=== PATIENT | male | born 1985 | race Caucasian/White ===

== ENCOUNTER 2018-02-27 01:14 | Emergency (ER) | payer OTHER ==
[2018-02-27] MEDS: Bacitracin/Neomycin/Polymyxin B Oint 0.9 GM U/D Packet ONE (02:03)
--- NOTE | 2018-02-27 02:21 | EDM.PDOC ---
ED HPI GENERAL MEDICAL PROBLEM - General Chief Complaint: Upper Extremity Injury/Pain Stated Complaint: LEFT HAND LACERATIONS Time Seen by Provider: 02/27/18 01:48 Source of Information: Reports: Patient History Limitations: Reports: No Limitations - History of Present Illness INITIAL COMMENTS - FREE TEXT/NARRATIVE: [facility] utility knife. No loss of tendon function. Bleeding controlled. No other complaints. No numbness. - Related Data Allergies Allergy/AdvReac Type Severity Reaction Status Date / Time No Known Allergies Allergy Verified 02/27/18 01:22 Home Meds: Home Meds . [No Known Home Meds] 02/27/18 [History] Past Medical History Musculoskeletal History: Reports: Other (See Below) Other Musculoskeletal History: NOSE FX - Infectious Disease History Infectious Disease History: Reports: Chicken Pox - Past Surgical History Musculoskeletal Surgical History: Reports: Shoulder Surgery Social & Family History - Tobacco Use Smoking Status *Q: Former Smoker Years of Tobacco use: 10 Packs/Tins Daily: 1 Used Tobacco, but Quit: Yes Month/Year Tobacco Last Used: 2016 Tobacco Use Comment: CURRENTLY USES DIP. - Caffeine Use Caffeine Use: Reports: Energy Drinks Caffeine Use Comment: 1 CAN DAILY - Recreational Drug Use Recreational Drug Use: Yes Drug Use in Last 12 Months: No Recreational Drug Type: Reports: Marijuana/Hashish Review of Systems - Review of Systems Review Of Systems: ROS reveals no pertinent complaints other than HPI. ED EXAM, GENERAL - Physical Exam Exam: See Below Exam Limited By: No Limitations General Appearance: Alert, WD/WN, No Apparent Distress Eye Exam: Bilateral Eye: EOMI, PERRL Head: Atraumatic, Normocephalic Neck: Supple Respiratory/Chest: No Respiratory Distress Extremities: Normal Range of Motion, Normal Capillary Refill Neurological: Alert, Oriented, Normal Cognition, Normal Gait, No Motor/Sensory Deficits Psychiatric: Normal Affect, Normal Mood Skin Exam: Warm, Dry, Other (Deeper lacerations noted ventral aspect of 2nd and 3rd digits, left hand. Superficial small laceration 4th finger. Smaller slightly deeper laceration 5th finger. Tendon function intact. NVI. ) ED TRAUMA EXTREMITY PROCEDURES - Laceration/Wound Repair index finger left Appearance: Subcutaneous, Stellate, Mildly Contaminated Distal NVT: Neuro & Vascular Intact, No Tendon Injury Local Anesthesia - Lidocaine (Xylocaine): 1% Plain Local Anesthetic Volume: 1cc Skin Prep: Providone-Iodine (Betadine) Exploration/Debridement/Repair: Wound Explored, In a Bloodless Field, Explored to Base Closed With: Sutures Suture Size: 4-0 # of Sutures: 2 Suture Type: Nylon, Interrupted Sterile Dressing Applied: Nurse Tetanus Status Addressed: Yes Complications: No middle finger left Lac/Wound Length In cm: 2 Appearance: Subcutaneous, Linear, Mildly Contaminated Distal NVT: Neuro & Vascular Intact, No Tendon Injury Anesthetic Type: Local Local Anesthesia - Lidocaine (Xylocaine): 1% Plain Local Anesthetic Volume: 2cc Skin Prep: Providone-Iodine (Betadine) Exploration/Debridement/Repair: Wound Explored, In a Bloodless Field, Explored to Base Suture Size: 4-0 # of Sutures: 3 Suture Type: Nylon Sterile Dressing Applied: Nurse Tetanus Status Addressed: Yes Complications: No 5th finger left Lac/Wound Length In cm: 0.5 Appearance: Subcutaneous Distal NVT: Neuro & Vascular Intact, No Tendon Injury Skin Prep: Providone-Iodine (Betadine) Exploration/Debridement/Repair: Wound Explored, In a Bloodless Field, Explored to Base Closed With: Steri-Strips Sterile Dressing Applied: Nurse Tetanus Status Addressed: Yes Course - Vital Signs Last Recorded V/S: Last Vital Signs Temp 36.1 C 02/27/18 01:15 Pulse 68 02/27/18 01:15 Resp 20 02/27/18 01:15 BP 128/81 02/27/18 01:15 Pulse Ox 100 02/27/18 01:15 - Orders/Labs/Meds Meds: Medications Discontinued Medications Generic Name Dose Route Start Last Admin Trade Name Jasmin PRN Reason Stop Dose Admin Lidocaine HCl 5 ml 02/27/18 01:48 02/27/18 02:03 Xylocaine-Mpf 1% INJECT 02/27/18 01:49 5 ml ONETIME ONE Administration Neomycin/Polymyxin/Bacitracin Confirm 02/27/18 01:56 02/27/18 02:03 Triple Antibiotic Oint Administered 02/27/18 01:57 1 each Dose Administration 1 each .ROUTE .STK-MED ONE - Re-Assessments/Exams Free Text/Narrative Re-Assessment/Exam: 02/27/18 02:24 lacerations involving 2nd and 3rd fingers required sutures. Small laceration 4th finger did not require treatment Small laceration 5th finger secured with steri-strip Tetanus is up to date (2013) Departure - Departure Time of Disposition: 02:19 Disposition: Home, Self-Care 01 Condition: Good Clinical Impression: Laceration of fingers without complication Qualifiers: Encounter type: initial encounter Qualified Code(s): S61.219A - Laceration without foreign body of unspecified finger without damage to nail, initial encounter - Discharge Information Instructions: Sutured Wound Care, [id number] Forms: ED Department Discharge Additional Instructions: Follow up as needed if you have problems or signs of infection. Follow up in 7-8 days to get sutures removed.
== END 2018-02-27 02:31 | disposition home or self-care (01) ==
LOC: LL.ED 01:14
DX: S61.211A Laceration without foreign body of left index finger without damage to nail, initial encounter (principal); S61.203A Unspecified open wound of left middle finger without damage to nail, initial encounter; S61.215A Laceration without foreign body of left ring finger without damage to nail, initial encounter; S61.217A Laceration without foreign body of left little finger without damage to nail, initial encounter; Z87.891 Personal history of nicotine dependence; W26.0XXA Contact with knife, initial encounter
CPT/HCPCS: 12002; 99283